=== PATIENT | female | born 1985 | race Caucasian/White ===

== ENCOUNTER 2018-12-18 10:33 | Inpatient (IN) | payer OTHER ==
[2018-12-18] MEDS ORDERED: RINGERS SOLUTION,LACTATED 1,000 ML IV PRN ×2 (11:06→14:14)
[2018-12-18] MEDS ORDERED: METOCLOPRAMIDE HCL 5 MG/ML 2 ML VIAL IVP PRN ×2 (11:15→14:15)
[2018-12-18] MEDS ORDERED: CITRIC ACID/SODIUM CITRATE 30 ML SOLUTION UDCUP PO PRN ×2 (11:15→14:15)
[2018-12-18] MEDS: RINGERS SOLUTION,LACTATED 1,000 ML IV SCH ×2 (11:20→18:58)
[2018-12-18] MEDS ORDERED: OXYTOCIN 30 UNITS/LACT RINGERS 500 ML IV ONE (11:47)
[2018-12-18] MEDS ORDERED: AMPICILLIN SODIUM 2 GM/NS 100 ML IV ONE ×2 (11:48→16:00)
[2018-12-18] MEDS ORDERED: RINGERS SOLUTION,LACTATED 1,000 ML IV ONE ×2 (11:49→18:28)
[2018-12-18] MEDS ORDERED: BUPIVACAINE HCL/PF 0.25% 10 ML VIAL ONE (12:40)
[2018-12-18] MEDS ORDERED: ROPIVACAINE HCL/PF 0.2% 100 ML ED ONE (12:40)
[2018-12-18] MEDS ORDERED: FentaNYL CITRATE-PF 100 MCG/2 ML VIAL IVP ONE (12:45)
[2018-12-18] MEDS ORDERED: RINGERS SOLUTION,LACTATED 1,000 ML IV SCH (14:14)
[2018-12-18 14:27] VITALS: BP 121/73
[2018-12-18] MEDS ORDERED: DiphenhydrAMINE HCL 50 MG/ML VIAL IVP PRN ×2 (14:30→17:30)
[2018-12-18] MEDS ORDERED: ROPIVACAINE HCL/PF 0.2% 100 ML ED PRN (14:30)
[2018-12-18] MEDS ORDERED: NALBUPHINE HCL 10 MG/ML VIAL IVP PRN ×3 (14:30→17:30)
[2018-12-18] MEDS ORDERED: ONDANSETRON HCL 4 MG/2 ML VIAL IVP PRN ×3 (14:30→17:45)
[2018-12-18 15:08] LABS: BASOPHILS % (AUTO) 0.1 % (0.0-2.0); EOSINOPHILS % (AUTO) 0 % (1.0-6.0); HEMATOCRIT 38.5 % (36-46); HEMOGLOBIN 12.8 g/dL (12.0-16.0); LYMPHOCYTES # (AUTO) 1.3 K/uL (1.0-4.8); LYMPHOCYTES % (AUTO) 6.6 % (22.0-44.0); MEAN CORPUSCULAR HGB CONC 33.4 G/dL (31.0-37.0); MEAN CORPUSCULAR VOLUME 96 fL (80-100); MONOCYTES # (AUTO) 0.6 K/uL (0.1-1.0); MONOCYTES % (AUTO) 3.2 % (2.0-9.0); NEUTROPHILS # (AUTO) 17.6 K/uL (1.8-7.7); PLATELET COUNT (AUTO)-OB 186 K/uL (150-450); RED BLOOD CELL COUNT(AUTO) 4.02 MIL/uL (4.00-5.20); RED CELL DISTRIBUTION WIDTH 13.6 % (11.5-14.5)
[2018-12-18 15:11] LABS: NEUTROPHILS % (AUTO) 90.1 % (40.0-70.0)
[2018-12-18] MEDS ORDERED: INFLUENZA VIRUS VACCINE QVS 2019-20 (3YR+)/PF 60 MCG/0.5 ML SYRINGE IM ONE (15:15)
[2018-12-18] MEDS ORDERED: AMPICILLIN SODIUM 1 GM/NS 50 ML IV ONE (16:00)
[2018-12-18] MEDS ORDERED: ACETAMINOPHEN 1000 MG/ISO-OSM 100 ML IV ONE (16:55)
[2018-12-18] MEDS ORDERED: MORPHINE SULFATE/PF 1 MG/ML 10 ML AMP ONE (16:55)
[2018-12-18] MEDS ORDERED: LIDOCAINE 2%/EPI 1:200,000/PF 20 ML VIAL ONE (16:55)
[2018-12-18] MEDS ORDERED: GUM MASTIC/STORAX/MSAL/ALCOHOL LIQUID 0.67 ML VIAL TP ONE (17:11)
[2018-12-18] MEDS ORDERED: NALOXONE HCL 0.4 MG/ML VIAL IVP PRN (17:30)
[2018-12-18] MEDS ORDERED: FentaNYL CITRATE-PF 100 MCG/2 ML VIAL IVP PRN ×3 (17:30→17:45)
[2018-12-18] MEDS ORDERED: MORPHINE SULFATE 10 MG/ML SYRINGE IVP PRN ×2 (17:30)
[2018-12-18] MEDS ORDERED: MORPHINE SULFATE 2 MG/ML SYRINGE IVP PRN (17:45)
[2018-12-18] MEDS ORDERED: OXYTOCIN 10 UNITS/ML VIAL IM ONE (18:34)
[2018-12-18] MEDS: OXYTOCIN 20 UNITS/LACT RINGERS 1,000 ML IV SCH (18:56)
[2018-12-18] MEDS ORDERED: OXYGEN THERAPY IH SCH ×4 (20:00)
[2018-12-18] MEDS: KETOROLAC TROMETHAMINE 30 MG/ML VIAL IVP SCH (22:59)
[2018-12-19] MEDS ORDERED: LANOLIN 7 GM OINTMENT TP PRN
[2018-12-19] MEDS: OXYTOCIN 20 UNITS/LACT RINGERS 1,000 ML IV SCH (00:09)
[2018-12-19] MEDS: ACETAMINOPHEN 1000 MG/ISO-OSM 100 ML IV SCH ×2 (01:09→08:24)
[2018-12-19] MEDS: KETOROLAC TROMETHAMINE 30 MG/ML VIAL IVP SCH (05:01)
[2018-12-19] MEDS ORDERED: PROPOFOL 1% 20 ML VIAL IVP ONE (05:45)
[2018-12-19] MEDS ORDERED: LIDOCAINE/PF 2% 5 ML VIAL IM ONE (05:45)
[2018-12-19] MEDS ORDERED: ONDANSETRON HCL 4 MG/2 ML VIAL IVP ONE (05:45)
[2018-12-19] MEDS ORDERED: DEXAMETHASONE SOD PHOS 4 MG/ML VIAL IVP ONE (05:45)
[2018-12-19] MEDS ORDERED: OXYTOCIN 10 UNITS/ML VIAL IM ONE (05:45)
[2018-12-19 06:17] LABS: BASOPHILS % (AUTO) 0.2 % (0.0-2.0); EOSINOPHILS % (AUTO) 0.1 % (1.0-6.0); HEMOGLOBIN 9.8 g/dL (12.0-16.0); LYMPHOCYTES # (AUTO) 2.2 K/uL (1.0-4.8); LYMPHOCYTES % (AUTO) 12.1 % (22.0-44.0); MEAN CORPUSCULAR HEMOGLOBIN 33.2 pg (26.0-34.0); MEAN CORPUSCULAR HGB CONC 34.9 G/dL (31.0-37.0); MEAN CORPUSCULAR VOLUME 95 fL (80-100); MONOCYTES # (AUTO) 1.2 K/uL (0.1-1.0); MONOCYTES % (AUTO) 6.7 % (2.0-9.0); NEUTROPHILS # (AUTO) 14.6 K/uL (1.8-7.7); NEUTROPHILS % (AUTO) 80.9 % (40.0-70.0); PLATELET COUNT (AUTO)-OB 173 K/uL (150-450); RED BLOOD CELL COUNT(AUTO) 2.94 MIL/uL (4.00-5.20); RED CELL DISTRIBUTION WIDTH 13.6 % (11.5-14.5)
[2018-12-19] MEDS ORDERED: RINGERS SOLUTION,LACTATED 1,000 ML IV ONE (07:00)
[2018-12-19] MEDS: FentaNYL CITRATE-PF 100 MCG/2 ML VIAL IVP PRN ×3 (12:21→21:41)
[2018-12-19] MEDS ORDERED: CYCLOBENZAPRINE HCL 10 MG TABLET PO SCH (16:00)
[2018-12-19] MEDS: MAGNESIUM HYDROXIDE SUSPENSION 30 ML UDCUP PO PRN (21:40)
[2018-12-20] MEDS ORDERED: IBUPROFEN 800 MG TABLET PO PRN
[2018-12-20] MEDS ORDERED: ACETAMINOPHEN/CODEINE 300-30 MG TABLET PO PRN ×2
[2018-12-20] MEDS: MAGNESIUM HYDROXIDE SUSPENSION 30 ML UDCUP PO PRN (10:37)
[2018-12-20] MEDS ORDERED: ACET-2247 PO (13:03)
[2018-12-20] MEDS ORDERED: IBUP-2070 PO (13:05)
[2018-12-20] MEDS ORDERED: DOCU-275 PO (13:10)
[2018-12-20] MEDS ORDERED: PERCT PO (13:12)
[2018-12-20] MEDS ORDERED: RINGERS SOLUTION,LACTATED 1,000 ML IV ONE (15:31)
== END 2018-12-20 16:45 | disposition home or self-care (01) | DRG 788 ==
LOC: OBSVTOIN 10:33 → 4S 10:33 → EDBD 10:33 → 4S 20:55
PROVIDERS: ADMIT Obstetrics & Gynecology; ATTEND Obstetrics & Gynecology
PROC: 10D00Z1 Extraction of Products of Conception, Low, Open Approach (ICD-10-PCS; principal; 2018-12-18)
DX: O76 Abnormality in fetal heart rate and rhythm complicating labor and delivery (principal); Z3A.38 38 weeks gestation of pregnancy; Z37.0 Single live birth; O62.2 Other uterine inertia
CPT/HCPCS: 86850; 86900; 86901; J0131; J0290; J0690; J1100; J1885; J2270; J2405; J2590; J2704; J2795; J3010; J3490; J7120